=== PATIENT | female | born 2000 | race Caucasian/White ===

== ENCOUNTER 2019-08-26 01:11 | Emergency (ER) | payer MEDICAID ==
[~2019-08-26] VITALS: Ht 162.6 cm; Wt 65.8 kg
[2019-08-26 01:19] VITALS: BP 112/71; Ht 162.6 cm; Wt 65.8 kg
== END 2019-08-26 02:54 | disposition left against medical advice (07) ==
LOC: ED 01:11
DX: Z53.21 Procedure and treatment not carried out due to patient leaving prior to being seen by health care provider (principal)